=== PATIENT | female | born 1945 | race Caucasian/White ===

== ENCOUNTER 2023-03-03 00:50 | Inpatient (IN) | payer OTHER ==
[~2023-03-03] VITALS: Ht 167.6 cm; Wt 58.1 kg
[~2023-03-03 00:50] MED LIST: ALPR0.25 PO; AMLO5TAB92 PO
[2023-03-03 01:20] VITALS: BP_SYST 169; PULSE 96; RESP 22; TEMP 98.1; O2SAT 97
[2023-03-03 02:02] LABS: ANION GAP 5 (5-15); CALCIUM 8.5 mg/dL (8.4-11.0); CARBON DIOXIDE 32 mmol/L (23-29); CHLORIDE 89 mmol/L (98-107); CREATININE 0.53 mg/dL (0.55-1.30); GLUCOSE 107 mg/dL (74-106); POTASSIUM 4.3 mmol/L (3.5-5.1); SODIUM SERUM 126 mmol/L (136-145); UREA NITROGEN, BLOOD 6 mg/dL (8-21)
[2023-03-03 02:05] LABS: BASOPHILS % (AUTO) 0.6 % (0.0-2.0); EOSINOPHILS # (AUTO) 0.1 K/uL (0.0-0.4); EOSINOPHILS % (AUTO) 1.2 % (0.0-4.0); HEMATOCRIT 32.4 % (36-48); LYMPHOCYTES # (AUTO) 0.6 K/uL (1.0-5.5); LYMPHOCYTES % (AUTO) 11.6 % (20.5-51.5); MEAN CORPUSCULAR HEMOGLOBIN 30 pg (27-31); MEAN CORPUSCULAR HGB CONC 34 % (32-36); MEAN CORPUSCULAR VOLUME 89 fL (79.0-98.0); MONOCYTES # (AUTO) 0.5 K/uL (0.0-1.0); MONOCYTES % (AUTO) 8.5 % (1.7-9.3); NEUTROPHILS # (AUTO) 4.3 K/uL (1.8-7.7); NEUTROPHILS % (AUTO) 78.1 % (40.0-70.0); PLATELET COUNT (AUTO) 292 K/uL (130-430); RED BLOOD CELL COUNT(AUTO) 3.65 MIL/uL (4.2-6.2); WHITE BLOOD COUNT (AUTO) 5.5 K/uL (4.8-10.8)
[2023-03-03 02:09] LABS: ALANINE AMINOTRANSFERASE 17 U/L (12-78); ALBUMIN 3.3 g/dL (3.4-4.8); ASPARTATE AMINOTRANSFERASE 17 U/L (10-37); CREATINE KINASE, TOTAL 49 U/L (26-192); TOTAL BILIRUBIN 0.7 mg/dL (0.0-1.0); TOTAL PROTEIN, SERUM 6.7 g/dL (6.4-8.3)
[2023-03-03] MEDS ORDERED: NS 500 ML IV ONE (02:15)
[2023-03-03 02:16] LABS: INR 1.3 (0.8-1.2); PROTHROMBIN TIME 13.2 SECS (9.5-12.5)
[2023-03-03 02:54] LABS: BILIRUBIN,URINE NEGATIVE (NEGATIVE); CLARITY/URINE CLEAR (CLEAR); COLOR,URINE YELLOW (YELLOW); GLUCOSE,URINE NEGATIVE (NEGATIVE); KETONES,URINE 1+ (NEGATIVE); LEUKOCYTE ESTERASE ,URINE NEGATIVE (NEGATIVE); NITRITE, URINE NEGATIVE (NEGATIVE); PROTEIN URINE NEGATIVE (NEGATIVE); UROBILINOGEN,URINE 0.2 (0.2-1.0)
[2023-03-03 03:09] LABS: BLOOD, URINE TRACE (NEGATIVE)
[2023-03-03 03:10] LABS: BACTERIA,URINE None Seen /HPF (None Seen); RBC,URINE 0-3 /HPF (0-3); WBC,URINE 0-3 /HPF (0-3)
[2023-03-03] MEDS ORDERED: IPRATROPIUM/ALBUTEROL SULFATE 3 ML AMPUL.NEB (DUONEB) INH ONE (03:45)
[2023-03-03] MEDS ORDERED: FURO-150 PO (04:26)
[2023-03-03] MEDS ORDERED: RIVA20TA PO (04:26)
[2023-03-03] MEDS ORDERED: ALPR0.25 PO (04:26)
[2023-03-03] MEDS ORDERED: LOSA25TA3 PO (04:26)
[2023-03-03] MEDS ORDERED: POTA8TAB66 PO (04:26)
[2023-03-03 06:42] LABS: ALANINE AMINOTRANSFERASE 15 U/L (12-78); ALBUMIN 2.9 g/dL (3.4-4.8); ANION GAP 4 (5-15); ASPARTATE AMINOTRANSFERASE 16 U/L (10-37); CARBON DIOXIDE 32 mmol/L (23-29); CHLORIDE 92 mmol/L (98-107); CREATININE 0.47 mg/dL (0.55-1.30); GLUCOSE 106 mg/dL (74-106); SODIUM SERUM 128 mmol/L (136-145); TOTAL BILIRUBIN 0.7 mg/dL (0.0-1.0); TOTAL PROTEIN, SERUM 6.1 g/dL (6.4-8.3); UREA NITROGEN, BLOOD 4 mg/dL (8-21)
[2023-03-03 10:00] VITALS: BP_SYST 162; PULSE 83; RESP 20; TEMP 98.4; O2SAT 93
[2023-03-03] MEDS ORDERED: FUROSEMIDE 40 MG/4 ML VIAL IVP ONE (11:30)
[2023-03-03 12:00] VITALS: BP_SYST 143; PULSE 69; RESP 20; TEMP 98.2; O2SAT 96
[2023-03-03 13:28] VITALS: BP_SYST 162; PULSE 83; RESP 20; TEMP 98.4; O2SAT 93
[2023-03-03 16:00] VITALS: BP_SYST 131; PULSE 75; RESP 20; TEMP 98.3; O2SAT 95
[2023-03-03] MEDS: ALPRAZolam 0.25 MG TABLET PO PRN (18:50)
[2023-03-03 20:00] VITALS: BP_SYST 147; PULSE 92; RESP 18; TEMP 98.5; O2SAT 95
[2023-03-03] MEDS ORDERED: NACL 0.9% 1,000 ML IV SCH (20:00)
[2023-03-04 00:02] LABS: ANION GAP 5 (5-15); CALCIUM 8.3 mg/dL (8.4-11.0); CARBON DIOXIDE 33 mmol/L (23-29); CHLORIDE 91 mmol/L (98-107); CREATININE 0.55 mg/dL (0.55-1.30); GLUCOSE 102 mg/dL (74-106); POTASSIUM 3.7 mmol/L (3.5-5.1); SODIUM SERUM 129 mmol/L (136-145); UREA NITROGEN, BLOOD 4 mg/dL (8-21)
[2023-03-04 00:15] LABS: ALANINE AMINOTRANSFERASE 16 U/L (12-78); ASPARTATE AMINOTRANSFERASE 21 U/L (10-37); THYROID STIMULATING HORMONE 0.91 uIu/mL (0.34-4.82); TOTAL BILIRUBIN 0.8 mg/dL (0.0-1.0); TOTAL PROTEIN, SERUM 6.1 g/dL (6.4-8.3)
[2023-03-04 00:26] VITALS: BP_SYST 149; PULSE 74; RESP 16; TEMP 98.8; O2SAT 94
[2023-03-04] MEDS: ALPRAZolam 0.25 MG TABLET PO PRN ×3 (03:52→21:33)
[2023-03-04 07:50] VITALS: BP_SYST 159; PULSE 75; RESP 16; TEMP 96.7; O2SAT 94
[2023-03-04 08:13] LABS: BASOPHILS % (AUTO) 0.4 % (0.0-2.0); EOSINOPHILS # (AUTO) 0.1 K/uL (0.0-0.4); EOSINOPHILS % (AUTO) 0.8 % (0.0-4.0); HEMOGLOBIN 10.6 g/dL (12.0-16.0); LYMPHOCYTES # (AUTO) 0.7 K/uL (1.0-5.5); MEAN CORPUSCULAR HEMOGLOBIN 30 pg (27-31); MEAN CORPUSCULAR HGB CONC 33 % (32-36); MEAN CORPUSCULAR VOLUME 90 fL (79.0-98.0); MONOCYTES # (AUTO) 0.5 K/uL (0.0-1.0); MONOCYTES % (AUTO) 8.5 % (1.7-9.3); NEUTROPHILS # (AUTO) 4.9 K/uL (1.8-7.7); NEUTROPHILS % (AUTO) 78.3 % (40.0-70.0); PLATELET COUNT (AUTO) 256 K/uL (130-430); RED BLOOD CELL COUNT(AUTO) 3.56 MIL/uL (4.2-6.2); RED CELL DISTRIBUTION WIDTH 13.1 % (9.0-15.0); WHITE BLOOD COUNT (AUTO) 6.2 K/uL (4.8-10.8)
[2023-03-04 08:23] LABS: ALANINE AMINOTRANSFERASE 18 U/L (12-78); ALBUMIN 2.8 g/dL (3.4-4.8); ANION GAP 5 (5-15); ASPARTATE AMINOTRANSFERASE 20 U/L (10-37); CALCIUM 8.2 mg/dL (8.4-11.0); CARBON DIOXIDE 31 mmol/L (23-29); CHLORIDE 93 mmol/L (98-107); CREATININE 0.45 mg/dL (0.55-1.30); GLUCOSE 96 mg/dL (74-106); PHOSPHORUS 3.5 mg/dL (2.7-4.5); POTASSIUM 3.7 mmol/L (3.5-5.1); SODIUM SERUM 129 mmol/L (136-145); TOTAL BILIRUBIN 0.9 mg/dL (0.0-1.0); TOTAL PROTEIN, SERUM 5.8 g/dL (6.4-8.3); UREA NITROGEN, BLOOD 4 mg/dL (8-21)
[2023-03-04 11:17] VITALS: BP_SYST 114; BP_SYST 150; PULSE 132; PULSE 67; RESP 16; TEMP 97.4; TEMP 98.3; O2SAT 95
[2023-03-04] MEDS ORDERED: FUROSEMIDE 40 MG/4 ML VIAL IVP ONE (12:00)
[2023-03-04] MEDS ORDERED: POTASSIUM CHLORIDE 20 MEQ/PKT PACKET PO ONE (14:00)
[2023-03-04] MEDS ORDERED: ALPRAZolam 0.25 MG TABLET PO PRN (14:15)
[2023-03-04] MEDS ORDERED: ALPRAZolam 0.25 MG TABLET PO SCH (14:15)
[2023-03-04 16:05] LABS: BASOPHILS % (AUTO) 0.5 % (0.0-2.0); EOSINOPHILS # (AUTO) 0.1 K/uL (0.0-0.4); EOSINOPHILS % (AUTO) 0.7 % (0.0-4.0); HEMATOCRIT 34.8 % (36-48); HEMOGLOBIN 11.6 g/dL (12.0-16.0); LYMPHOCYTES # (AUTO) 0.5 K/uL (1.0-5.5); LYMPHOCYTES % (AUTO) 6.1 % (20.5-51.5); MEAN CORPUSCULAR HEMOGLOBIN 30 pg (27-31); MEAN CORPUSCULAR HGB CONC 33 % (32-36); MEAN CORPUSCULAR VOLUME 90 fL (79.0-98.0); MONOCYTES # (AUTO) 0.9 K/uL (0.0-1.0); MONOCYTES % (AUTO) 11.6 % (1.7-9.3); NEUTROPHILS # (AUTO) 6.3 K/uL (1.8-7.7); NEUTROPHILS % (AUTO) 81.1 % (40.0-70.0); PLATELET COUNT (AUTO) 293 K/uL (130-430); RED BLOOD CELL COUNT(AUTO) 3.87 MIL/uL (4.2-6.2); RED CELL DISTRIBUTION WIDTH 12.9 % (9.0-15.0); WHITE BLOOD COUNT (AUTO) 7.8 K/uL (4.8-10.8)
[2023-03-04 19:09] VITALS: BP_SYST 129; PULSE 83; RESP 16; TEMP 97.9; O2SAT 94
[2023-03-04 20:00] VITALS: BP_SYST 149; PULSE 74; RESP 17; TEMP 98.7; O2SAT 93
[2023-03-04] MEDS: FUROSEMIDE 20 MG/2 ML VIAL IVP SCH (21:37)
[2023-03-05] VITALS (7 sets, daily range): BP systolic 89–125; PULSE 57–89; RESP 17–18; TEMP 97.5–98.9; O2SAT 92–96
[2023-03-05] MEDS: ALPRAZolam 0.25 MG TABLET PO PRN ×3 (05:33→23:40)
[2023-03-05 06:08] LABS: BASOPHILS % (AUTO) 0.1 % (0.0-2.0); HEMATOCRIT 35.5 % (36-48); HEMOGLOBIN 11.6 g/dL (12.0-16.0); LYMPHOCYTES # (AUTO) 0.3 K/uL (1.0-5.5); LYMPHOCYTES % (AUTO) 2.3 % (20.5-51.5); MEAN CORPUSCULAR HEMOGLOBIN 29 pg (27-31); MEAN CORPUSCULAR HGB CONC 33 % (32-36); MEAN CORPUSCULAR VOLUME 90 fL (79.0-98.0); MONOCYTES # (AUTO) 0.8 K/uL (0.0-1.0); MONOCYTES % (AUTO) 5.7 % (1.7-9.3); NEUTROPHILS # (AUTO) 13.5 K/uL (1.8-7.7); NEUTROPHILS % (AUTO) 91.9 % (40.0-70.0); PLATELET COUNT (AUTO) 290 K/uL (130-430); RED BLOOD CELL COUNT(AUTO) 3.94 MIL/uL (4.2-6.2); RED CELL DISTRIBUTION WIDTH 12.8 % (9.0-15.0); WHITE BLOOD COUNT (AUTO) 14.7 K/uL (4.8-10.8)
[2023-03-05 06:38] LABS: ALANINE AMINOTRANSFERASE 18 U/L (12-78); ANION GAP 8 (5-15); ASPARTATE AMINOTRANSFERASE 22 U/L (10-37); CALCIUM 8.5 mg/dL (8.4-11.0); CARBON DIOXIDE 33 mmol/L (23-29); CHLORIDE 89 mmol/L (98-107); CREATININE 0.56 mg/dL (0.55-1.30); GLUCOSE 108 mg/dL (74-106); PHOSPHORUS 3.3 mg/dL (2.7-4.5); POTASSIUM 3.3 mmol/L (3.5-5.1); SODIUM SERUM 130 mmol/L (136-145); TOTAL BILIRUBIN 0.9 mg/dL (0.0-1.0); TOTAL PROTEIN, SERUM 6.4 g/dL (6.4-8.3); UREA NITROGEN, BLOOD 11 mg/dL (8-21)
[2023-03-05] MEDS: LOSARTAN POTASSIUM 25 MG TABLET PO SCH (09:00)
[2023-03-05] MEDS ORDERED: amLODIPine BESYLATE 5 MG TABLET PO SCH (09:00)
[2023-03-05] MEDS: FUROSEMIDE 20 MG/2 ML VIAL IVP SCH (09:00)
[2023-03-05] MEDS ORDERED: FUROSEMIDE 20 MG TABLET PO SCH (09:00)
[2023-03-05] MEDS: SPIRONOLACTONE 25 MG TABLET (ALDACTONE) PO SCH (09:00)
[2023-03-05] MEDS: RIVAROXABAN 10 MG TABLET PO SCH (09:13)
[2023-03-05] MEDS: POTASSIUM CHLORIDE 8 MEQ TABLET.SA PO SCH (09:22)
[2023-03-05] MEDS ORDERED: FUROSEMIDE 40 MG TABLET PO ONE (14:15)
[2023-03-05] MEDS ORDERED: POTASSIUM CHLORIDE 20 MEQ/PKT PACKET PO ONE (14:30)
[2023-03-05] MEDS ORDERED: LEVOFLOXACIN 250 MG/D5W 50 ML IV SCH (18:00)
[2023-03-05] MEDS: FUROSEMIDE 40 MG TABLET PO SCH (21:00)
[2023-03-05] MEDS: SIMETHICONE 80 MG TAB.CHEW PO SCH (21:21)
[2023-03-05] MEDS: metroNIDAZOLE 250 mg/NS 50 ML IV SCH (22:57)
[2023-03-05 23:46] LABS: BILIRUBIN,URINE NEGATIVE (NEGATIVE); CLARITY/URINE CLOUDY (CLEAR); COLOR,URINE YELLOW (YELLOW); GLUCOSE,URINE NEGATIVE (NEGATIVE); KETONES,URINE 2+ (NEGATIVE); LEUKOCYTE ESTERASE ,URINE 3+ (NEGATIVE); NITRITE, URINE NEGATIVE (NEGATIVE); PROTEIN URINE TRACE (NEGATIVE); UROBILINOGEN,URINE 0.2 (0.2-1.0)
[2023-03-06] VITALS: BP_SYST 122; PULSE 74; RESP 20; TEMP 98.6; O2SAT 97
[2023-03-06 00:05] LABS: BLOOD, URINE TRACE (NEGATIVE)
[2023-03-06 00:07] LABS: BACTERIA,URINE MANY /HPF (None Seen); WBC,URINE >100 /HPF (0-3)
[2023-03-06 02:29] VITALS: O2SAT 96
[2023-03-06] MEDS: metroNIDAZOLE 250 mg/NS 50 ML IV SCH ×2 (06:57→14:15)
[2023-03-06 07:49] LABS: BASOPHILS % (AUTO) 0.3 % (0.0-2.0); EOSINOPHILS # (AUTO) 0.1 K/uL (0.0-0.4); EOSINOPHILS % (AUTO) 0.8 % (0.0-4.0); HEMATOCRIT 33.2 % (36-48); LYMPHOCYTES # (AUTO) 0.7 K/uL (1.0-5.5); LYMPHOCYTES % (AUTO) 7.7 % (20.5-51.5); MEAN CORPUSCULAR HEMOGLOBIN 30 pg (27-31); MEAN CORPUSCULAR HGB CONC 33 % (32-36); MEAN CORPUSCULAR VOLUME 90 fL (79.0-98.0); MONOCYTES # (AUTO) 0.9 K/uL (0.0-1.0); NEUTROPHILS # (AUTO) 6.8 K/uL (1.8-7.7); NEUTROPHILS % (AUTO) 80.2 % (40.0-70.0); PLATELET COUNT (AUTO) 251 K/uL (130-430); RED CELL DISTRIBUTION WIDTH 13.1 % (9.0-15.0); WHITE BLOOD COUNT (AUTO) 8.5 K/uL (4.8-10.8)
[2023-03-06 07:59] LABS: ANION GAP 5 (5-15); CALCIUM 8.8 mg/dL (8.4-11.0); CARBON DIOXIDE 34 mmol/L (23-29); CHLORIDE 90 mmol/L (98-107); CREATININE 0.59 mg/dL (0.55-1.30); GLUCOSE 102 mg/dL (74-106); PHOSPHORUS 3.3 mg/dL (2.7-4.5); POTASSIUM 4.1 mmol/L (3.5-5.1); SODIUM SERUM 129 mmol/L (136-145); UREA NITROGEN, BLOOD 19 mg/dL (8-21)
[2023-03-06 08:05] VITALS: BP_SYST 112; PULSE 73; RESP 15; TEMP 97; O2SAT 96
[2023-03-06 08:35] VITALS: O2SAT 96
[2023-03-06] MEDS: POTASSIUM CHLORIDE 8 MEQ TABLET.SA PO SCH (09:24)
[2023-03-06] MEDS: FUROSEMIDE 40 MG TABLET PO SCH (09:25)
[2023-03-06] MEDS: LOSARTAN POTASSIUM 25 MG TABLET PO SCH (09:25)
[2023-03-06] MEDS: SPIRONOLACTONE 25 MG TABLET (ALDACTONE) PO SCH (09:26)
[2023-03-06] MEDS: SIMETHICONE 80 MG TAB.CHEW PO SCH (09:26)
[2023-03-06] MEDS: RIVAROXABAN 10 MG TABLET PO SCH (09:27)
[2023-03-06 12:16] VITALS: BP_SYST 117; PULSE 76; RESP 16; TEMP 97.4; O2SAT 97
[2023-03-06] MEDS ORDERED: FUROSEMIDE 40 MG/4 ML VIAL IVP ONE (12:45)
[2023-03-06] MEDS ORDERED: SPIR25TA PO (14:47)
[2023-03-06] MEDS: ALPRAZolam 0.25 MG TABLET PO PRN (16:01)
[2023-03-06 17:03] VITALS: BP_SYST 102; PULSE 79; RESP 15; TEMP 98.6; O2SAT 95
== END 2023-03-06 17:55 | disposition home or self-care (01) | DRG 643 ==
LOC: SED 00:50 → SMU 04:23
PROVIDERS: ADMIT Specialist; ATTEND Specialist
DX: E22.2 Syndrome of inappropriate secretion of antidiuretic hormone (principal); J96.00 Acute respiratory failure, unspecified whether with hypoxia or hypercapnia; J44.1 Chronic obstructive pulmonary disease with (acute) exacerbation; N39.0 Urinary tract infection, site not specified; I11.0 Hypertensive heart disease with heart failure; I50.9 Heart failure, unspecified; D72.829 Elevated white blood cell count, unspecified; E88.09 Other disorders of plasma-protein metabolism, not elsewhere classified; Z88.8 Allergy status to other drugs, medicaments and biological substances; Z79.899 Other long term (current) drug therapy
CPT/HCPCS: 36415; 71045; 80048; 80053; 81000; 82533; 82550; 83735; 83880; 83930; 83935; 84100; 84302; 84443; 84484; 85025; 85379; 85610-TC; 85730-TC; 87040; 87086; 93005; 96360; 99285; J1940; J1956; J3490; J7030

== ENCOUNTER 2023-03-17 22:30 | Inpatient (IN) | payer OTHER ==
[~2023-03-17] VITALS: Ht 165.1 cm; Wt 56.7 kg
[~2023-03-17 22:30] MED LIST changes: +LOSA25TA3 PO; +RIVA20TA PO; +SPIR25TA PO
[2023-03-17 22:51] VITALS: BP_SYST 141; PULSE 82; RESP 18; O2SAT 96
[2023-03-17] MEDS ORDERED: NS 500 ML IV ONE (23:45)
[2023-03-18 00:24] LABS: BASOPHILS % (AUTO) 0.5 % (0.0-2.0); EOSINOPHILS % (AUTO) 0.2 % (0.0-4.0); HEMATOCRIT 32.9 % (36-48); LYMPHOCYTES # (AUTO) 0.7 K/uL (1.0-5.5); LYMPHOCYTES % (AUTO) 10.7 % (20.5-51.5); MEAN CORPUSCULAR HEMOGLOBIN 30 pg (27-31); MEAN CORPUSCULAR HGB CONC 34 % (32-36); MEAN CORPUSCULAR VOLUME 90 fL (79.0-98.0); MONOCYTES # (AUTO) 0.5 K/uL (0.0-1.0); MONOCYTES % (AUTO) 7.4 % (1.7-9.3); NEUTROPHILS % (AUTO) 81.2 % (40.0-70.0); PLATELET COUNT (AUTO) 335 K/uL (130-430); RED BLOOD CELL COUNT(AUTO) 3.68 MIL/uL (4.2-6.2); RED CELL DISTRIBUTION WIDTH 13.1 % (9.0-15.0); WHITE BLOOD COUNT (AUTO) 6.2 K/uL (4.8-10.8)
[2023-03-18 00:46] LABS: ALANINE AMINOTRANSFERASE 17 U/L (12-78); ALBUMIN 3.2 g/dL (3.4-4.8); ANION GAP 2 (5-15); ASPARTATE AMINOTRANSFERASE 20 U/L (10-37); CALCIUM 8.7 mg/dL (8.4-11.0); CARBON DIOXIDE 34 mmol/L (23-29); CHLORIDE 90 mmol/L (98-107); CREATININE 0.55 mg/dL (0.55-1.30); GLUCOSE 100 mg/dL (74-106); POTASSIUM 4.1 mmol/L (3.5-5.1); SODIUM SERUM 126 mmol/L (136-145); TOTAL BILIRUBIN 0.5 mg/dL (0.0-1.0); TOTAL PROTEIN, SERUM 6.6 g/dL (6.4-8.3); UREA NITROGEN, BLOOD 9 mg/dL (8-21)
[2023-03-18 00:49] LABS: PHOSPHORUS 3.7 mg/dL (2.7-4.5)
[2023-03-18 02:59] VITALS: BP_SYST 144; PULSE 76; RESP 18; TEMP 97.8
[2023-03-18] MEDS: NACL 0.9% 1,000 ML IV SCH ×2 (03:46→15:07)
[2023-03-18 04:07] VITALS: O2SAT 98
[2023-03-18] MEDS ORDERED: FUROSEMIDE 20 MG/2 ML VIAL IVP ONE (06:00)
[2023-03-18] MEDS: FUROSEMIDE 20 MG/2 ML VIAL IVP SCH ×2 (06:05→15:13)
[2023-03-18 11:28] VITALS: BP_SYST 140; PULSE 71; RESP 16; TEMP 98; O2SAT 98
[2023-03-18 15:17] VITALS: BP_SYST 149; PULSE 71; RESP 16; TEMP 97.2; O2SAT 98
[2023-03-18] MEDS ORDERED: ALPRAZolam 0.25 MG TABLET PO SCH (18:00)
[2023-03-18] MEDS ORDERED: ALPRAZolam 0.25 MG TABLET PO PRN (18:00)
[2023-03-18 20:10] VITALS: BP_SYST 134; PULSE 81; RESP 20; TEMP 97.2; O2SAT 95
[2023-03-18] MEDS: ALPRAZolam 0.25 MG TABLET PO SCH (22:09)
[2023-03-18] MEDS: FUROSEMIDE 20 MG TABLET PO SCH (22:12)
[2023-03-19 00:41] VITALS: BP_SYST 114; PULSE 76; RESP 16; TEMP 98.5; O2SAT 97
[2023-03-19] MEDS: NACL 0.9% 1,000 ML IV SCH ×2 (05:40→18:35)
[2023-03-19 07:00] VITALS: BP_SYST 148; PULSE 84; RESP 20; TEMP 98; O2SAT 95
[2023-03-19 08:00] VITALS: BP_SYST 148; PULSE 84; RESP 20; TEMP 98; O2SAT 95
[2023-03-19] MEDS: SPIRONOLACTONE 25 MG TABLET (ALDACTONE) PO SCH (08:55)
[2023-03-19] MEDS: LOSARTAN POTASSIUM 25 MG TABLET PO SCH (08:56)
[2023-03-19] MEDS: amLODIPine BESYLATE 5 MG TABLET PO SCH (08:56)
[2023-03-19] MEDS: FUROSEMIDE 20 MG TABLET PO SCH (08:56)
[2023-03-19] MEDS: ALPRAZolam 0.25 MG TABLET PO SCH ×2 (08:57→20:52)
[2023-03-19] MEDS: RIVAROXABAN 10 MG TABLET PO SCH (08:58)
[2023-03-19 11:24] VITALS: BP_SYST 125; PULSE 11; RESP 17; TEMP 97.5; O2SAT 91
[2023-03-19 12:27] LABS: ANION GAP 3 (5-15); CALCIUM 8.4 mg/dL (8.4-11.0); CARBON DIOXIDE 35 mmol/L (23-29); CHLORIDE 89 mmol/L (98-107); CREATININE 0.52 mg/dL (0.55-1.30); GLUCOSE 149 mg/dL (74-106); POTASSIUM 3.2 mmol/L (3.5-5.1); SODIUM SERUM 127 mmol/L (136-145); UREA NITROGEN, BLOOD 7 mg/dL (8-21)
[2023-03-19 17:02] VITALS: BP_SYST 137; PULSE 72; RESP 16; TEMP 97.5
[2023-03-19] MEDS ORDERED: FUROSEMIDE 20 MG/2 ML VIAL IVP ONE (18:00)
[2023-03-19 18:20] LABS: ANION GAP 4 (5-15); CALCIUM 8.4 mg/dL (8.4-11.0); CARBON DIOXIDE 33 mmol/L (23-29); CHLORIDE 92 mmol/L (98-107); CREATININE 0.41 mg/dL (0.55-1.30); GLUCOSE 143 mg/dL (74-106); POTASSIUM 3.8 mmol/L (3.5-5.1); SODIUM SERUM 129 mmol/L (136-145); UREA NITROGEN, BLOOD 8 mg/dL (8-21)
[2023-03-19 20:00] VITALS: BP_SYST 139; PULSE 79; RESP 22; TEMP 98.7; O2SAT 95
[2023-03-19] MEDS: FUROSEMIDE 20 MG/2 ML VIAL IVP SCH (20:51)
[2023-03-20] VITALS (7 sets, daily range): BP systolic 107–157; PULSE 64–82; RESP 16–20; TEMP 97.8–98.4; O2SAT 96–100
[2023-03-20] MEDS: NACL 0.9% 1,000 ML IV SCH ×2 (06:52→23:25)
[2023-03-20] MEDS: LOSARTAN POTASSIUM 25 MG TABLET PO SCH (09:52)
[2023-03-20] MEDS: RIVAROXABAN 10 MG TABLET PO SCH (09:54)
[2023-03-20] MEDS: amLODIPine BESYLATE 5 MG TABLET PO SCH ×2 (09:54→09:55)
[2023-03-20] MEDS: ALPRAZolam 0.25 MG TABLET PO SCH ×2 (09:55→23:24)
[2023-03-20] MEDS: FUROSEMIDE 20 MG/2 ML VIAL IVP SCH ×2 (09:56→23:24)
[2023-03-20] MEDS: SPIRONOLACTONE 25 MG TABLET (ALDACTONE) PO SCH (09:59)
[2023-03-20 10:17] LABS: BASOPHILS % (AUTO) 0.4 % (0.0-2.0); EOSINOPHILS # (AUTO) 0.1 K/uL (0.0-0.4); EOSINOPHILS % (AUTO) 0.7 % (0.0-4.0); HEMATOCRIT 32.5 % (36-48); HEMOGLOBIN 10.7 g/dL (12.0-16.0); LYMPHOCYTES # (AUTO) 0.9 K/uL (1.0-5.5); LYMPHOCYTES % (AUTO) 11.3 % (20.5-51.5); MEAN CORPUSCULAR HEMOGLOBIN 30 pg (27-31); MEAN CORPUSCULAR HGB CONC 33 % (32-36); MEAN CORPUSCULAR VOLUME 90 fL (79.0-98.0); MONOCYTES # (AUTO) 0.8 K/uL (0.0-1.0); MONOCYTES % (AUTO) 9.6 % (1.7-9.3); NEUTROPHILS # (AUTO) 6.1 K/uL (1.8-7.7); PLATELET COUNT (AUTO) 303 K/uL (130-430); RED BLOOD CELL COUNT(AUTO) 3.63 MIL/uL (4.2-6.2); RED CELL DISTRIBUTION WIDTH 13.2 % (9.0-15.0); WHITE BLOOD COUNT (AUTO) 7.9 K/uL (4.8-10.8)
[2023-03-20 10:43] LABS: ALANINE AMINOTRANSFERASE 3 U/L (12-78); ALBUMIN 2.6 g/dL (3.4-4.8); ANION GAP 0 (5-15); ASPARTATE AMINOTRANSFERASE 14 U/L (10-37); CALCIUM 8.2 mg/dL (8.4-11.0); CARBON DIOXIDE 35 mmol/L (23-29); CHLORIDE 94 mmol/L (98-107); CREATININE 0.59 mg/dL (0.55-1.30); GLUCOSE 118 mg/dL (74-106); SODIUM SERUM 129 mmol/L (136-145); TOTAL BILIRUBIN 0.6 mg/dL (0.0-1.0); TOTAL PROTEIN, SERUM 5.6 g/dL (6.4-8.3); UREA NITROGEN, BLOOD 10 mg/dL (8-21)
[2023-03-20] MEDS ORDERED: POTASSIUM CHLORIDE 20 MEQ TAB.PRT.SR PO ONE (15:15)
[2023-03-21] VITALS (7 sets, daily range): BP systolic 115–140; PULSE 67–78; RESP 16–18; TEMP 97.3–98; O2SAT 93–98
[2023-03-21 06:10] LABS: BASOPHILS # (AUTO) 0.1 K/uL (0.0-0.2); BASOPHILS % (AUTO) 0.8 % (0.0-2.0); EOSINOPHILS # (AUTO) 0.1 K/uL (0.0-0.4); EOSINOPHILS % (AUTO) 1.2 % (0.0-4.0); HEMATOCRIT 31.9 % (36-48); HEMOGLOBIN 10.8 g/dL (12.0-16.0); LYMPHOCYTES # (AUTO) 0.9 K/uL (1.0-5.5); LYMPHOCYTES % (AUTO) 12.6 % (20.5-51.5); MEAN CORPUSCULAR HEMOGLOBIN 30 pg (27-31); MEAN CORPUSCULAR HGB CONC 34 % (32-36); MEAN CORPUSCULAR VOLUME 90 fL (79.0-98.0); MONOCYTES # (AUTO) 0.6 K/uL (0.0-1.0); MONOCYTES % (AUTO) 8.8 % (1.7-9.3); NEUTROPHILS # (AUTO) 5.4 K/uL (1.8-7.7); NEUTROPHILS % (AUTO) 76.6 % (40.0-70.0); PLATELET COUNT (AUTO) 276 K/uL (130-430); RED BLOOD CELL COUNT(AUTO) 3.55 MIL/uL (4.2-6.2); RED CELL DISTRIBUTION WIDTH 13.3 % (9.0-15.0)
[2023-03-21 06:38] LABS: ANION GAP 4 (5-15); CALCIUM 8.4 mg/dL (8.4-11.0); CARBON DIOXIDE 33 mmol/L (23-29); CHLORIDE 95 mmol/L (98-107); CREATININE 0.52 mg/dL (0.55-1.30); GLUCOSE 97 mg/dL (74-106); POTASSIUM 3.3 mmol/L (3.5-5.1); SODIUM SERUM 132 mmol/L (136-145); UREA NITROGEN, BLOOD 11 mg/dL (8-21)
[2023-03-21] MEDS: LOSARTAN POTASSIUM 25 MG TABLET PO SCH (09:23)
[2023-03-21] MEDS: RIVAROXABAN 10 MG TABLET PO SCH (09:24)
[2023-03-21] MEDS: SPIRONOLACTONE 25 MG TABLET (ALDACTONE) PO SCH (09:25)
[2023-03-21] MEDS: ALPRAZolam 0.25 MG TABLET PO SCH (09:27)
[2023-03-21] MEDS: NACL 0.9% 1,000 ML IV SCH (13:54)
== END 2023-03-21 19:57 | disposition home or self-care (01) | DRG 640 ==
LOC: SED 22:30 → SMU 03-18 01:39
PROVIDERS: ADMIT Specialist; ATTEND Specialist
DX: E87.1 Hypo-osmolality and hyponatremia (principal); J96.00 Acute respiratory failure, unspecified whether with hypoxia or hypercapnia; J44.9 Chronic obstructive pulmonary disease, unspecified; E78.5 Hyperlipidemia, unspecified; F41.9 Anxiety disorder, unspecified; I11.0 Hypertensive heart disease with heart failure; I50.9 Heart failure, unspecified; E87.6 Hypokalemia; D64.9 Anemia, unspecified; Z85.118 Personal history of other malignant neoplasm of bronchus and lung; Z99.81 Dependence on supplemental oxygen; Z88.8 Allergy status to other drugs, medicaments and biological substances; Z79.899 Other long term (current) drug therapy; Z86.73 Personal history of transient ischemic attack (TIA), and cerebral infarction without residual deficits
CPT/HCPCS: 36415; 71045; 80048; 80053; 82533; 83735; 83880; 84100; 84302; 84484; 85025; 87081; 93005; 96360; 97116-GP; 97163-GP; 99285; J1940; J7030; J7040